=== PATIENT | female | born 1960 ===

== ENCOUNTER 2022-12-30 15:39 | Emergency (ER) | payer BC, SELFPAY ==
--- NOTE | ~2022-12-30 | XR_ITS ---
EXAM: XR shoulder RT min 2V DATE: 12/30/2022 16:23 HISTORY: Fall today. Right shoulder/proximal humeral pain . COMPARISON: None available. FINDINGS: Normal mineralization. Comminuted fracture of the right humeral head/proximal humerus, wit h a fracture fragment involving the greater tuberosity. Mild glenohumeral subluxation, without gopi dislocation. No lytic or blastic lesion. No erosion or periosteal change. Soft tissues within normal limits. IMPRESSION: Comminuted fracture of the right humeral head/proximal humerus with involvement of the gr eater tuberosity. Reviewed, dictated and finalized at location [facility] IMPRESSION: Comminuted fracture of the right humeral head/proximal humerus with involvement of the greater tuberosity.
[2022-12-30 15:40] VITALS: BP 135/87; PULSE 69; RESP 16; TEMP 37; O2SAT 100
--- NOTE | 2022-12-30 15:50 | ED.UPPEXIN ---
HPI - Extremity Injury (Upper) General Chief Complaint: Extremity Injury, Upper Stated Complaint: RIGHT SHOULDER INJURY Time Seen by Provider: 12/30/22 15:43 Source: patient Mode of arrival: ambulatory Limitations: no limitations History of Present Illness HPI narrative: This is a 62-year-old female that presents to the emergency department after a fall today with right shoulder injury. Reports she fell out of a golf cart and landed on her right shoulder. Since she has had pain and decreased range of motion in the shoulder. She did not hit her head or lose consciousness. Denies any other focal injuries. Denies numbness. Related Data Allergies Allergy/AdvReac Type Severity Reaction Status Date / Time No Known Allergies Allergy Verified 12/30/22 15:53 Review of Systems Review of Systems: CONSTITUTIONAL: Denies fever MUSCULOSKELETAL: Reports joint pain, and myalgia. NEUROLOGIC: Denies numbness All systems reviewed & are unremarkable except as noted in HPI and below PMFSH Past Medical History Medical History (Updated 12/30/22 @ 16:43 by Valeria Wang PA-C) History of arthritis Social History Social History (Updated 12/30/22 @ 15:53 by Valeria Wang PA-C) Substance use: never Exam Narrative: GENERAL: Well-appearing, well-nourished, and in no acute distress. HEAD: Normocephalic, atraumatic. EYES: EOMI. CHEST: Clear to auscultation. No respiratory distress. No wheezes rales or rhonchi HEART: Regular rate and rhythm. No murmur heard. Normal peripheral pulses. EXTREMITIES: Decreased active ROM in the right shoulder. No edema or obvious deformity. Normal radial pulse. Normal sensation SKIN: Warm, dry, no rash. NEURO: No focal deficits. Alert and oriented x3. PSYCH: Normal mood and affect Course Course Emergency Course: Patient and family updated on work-up and agree with plan of care. Vital Signs Vital signs: Vital Signs Temperature 98.6 F 12/30/22 15:40 Pulse Rate 69 12/30/22 15:40 Respiratory Rate 16 12/30/22 15:40 Blood Pressure 135/87 12/30/22 15:40 Pulse Oximetry 100 12/30/22 15:40 Temperature 98.6 F 12/30/22 15:40 Pulse Rate 69 12/30/22 15:40 Respiratory Rate 16 12/30/22 15:40 Blood Pressure 135/87 12/30/22 15:40 Pulse Oximetry 100 12/30/22 15:40 Procedures Orthopedic Splinting/Casting Injury #1: Splinting/Casting Date: 12/30/22 Splinting/Casting Time: 16:40 Side: right Upper Extremity Injury Location: shoulder Upper Extremity Immobilizer: sling/shoulder immobilizer Splint: prefabricated Pre-Formed: sling Pre-Procedure Neuro Vascular Exam: normal Post-Procedure Neuro Vascular Exam: normal MDM - Extremity Injury (Upper) MDM Narrative Medical decision making narrative: Patient presents to the emergency department after an injury to the right shoulder. She is neurovascularly intact. Denied hitting her head, loss of consciousness, or any other focal injuries. Right shoulder x-ray shows a comminuted fracture of the right humeral head with involvement of the greater tuberosity. Patient and family updated on work-up and agree with plan of care. Patient placed in a sling and will be given follow-up with orthopedics. She was given warnings to return to the ER Differential Diagnosis Differential diagnosis: Likely dislocation of shoulder and other (humerus fracture) Imaging Data Radiologist's impression: ITS Impressions Shoulder X-Ray 12/30/22 16:29 IMPRESSION: Comminuted fracture of the right humeral head/proximal humerus with involvement of the greater tuberosity. Critical Care Time Critical Care Time Critical Care Time: No Discharge Plan Discharge Clinical Impression: Fracture of proximal end of humerus Qualifiers: Encounter type: initial encounter Fracture type: closed Fracture morphology: other fracture Fracture alignment: displaced Laterality: right Qualified Code
[2022-12-30] MEDS: MORPHINE SULFATE (*CRX) 4 MG/ML INJ IV PUSH (15:55)
[2022-12-30] MEDS: ONDANSETRON INJ 4 MG/2 ML VIAL IV PUSH (15:55)
== END 2022-12-30 16:56 | disposition home or self-care (01) ==
PROVIDERS: Emergency Provider Physician Assistant
DX: S42.291A Other displaced fracture of upper end of right humerus, initial encounter for closed fracture (principal); M19.90 Unspecified osteoarthritis, unspecified site; V86.99XA Unspecified occupant of other special all-terrain or other off-road motor vehicle injured in nontraffic accident, initial encounter
CPT/HCPCS: 73030; 96365; 96375; 99284; A4565; J0131; J2270; J2405